=== PATIENT | female | born 1985 | race Caucasian/White ===

== ENCOUNTER 2020-01-05 08:26 | Emergency (ER) | payer MEDICAID ==
[~2020-01-05] VITALS: Ht 160 cm; Wt 69.9 kg
[2020-01-05 08:36] VITALS: Ht 160 cm; Wt 69.9 kg
[2020-01-05 10:50] VITALS: BP 104/65
== END 2020-01-05 11:04 | disposition home or self-care (01) ==
LOC: ED 08:26
DX: J06.9 Acute upper respiratory infection, unspecified (principal)

== ENCOUNTER 2020-10-01 01:55 | Emergency (ER) | payer MEDICAID ==
[~2020-10-01] VITALS: Ht 154.9 cm; Wt 67.8 kg
[2020-10-01 01:03] VITALS: Ht 154.9 cm; Wt 67.8 kg
[2020-10-01 03:53] VITALS: BP 128/86
== END 2020-10-01 03:53 | disposition home or self-care (01) ==
LOC: ED 01:55
DX: R21 Rash and other nonspecific skin eruption (principal); L29.9 Pruritus, unspecified
CPT/HCPCS: Q0163